=== PATIENT | female | born 1995 | race Two or more races ===

== ENCOUNTER 2024-10-31 13:00 | Emergency (ER) | payer OTHER ==
[~2024-10-31] VITALS: Ht 154.9 cm; Wt 52.2 kg
[2024-10-31] MEDS ORDERED: PEPCID AC20 MG (13:18)
[2024-10-31] MEDS ORDERED: ONDANSETRON HCL 2 MG/ML VIAL IV STA (13:33)
[2024-10-31] MEDS ORDERED: 0.9 % SODIUM CHLORIDE 1,000 ML IV STA (13:33)
[2024-10-31] MEDS ORDERED: ONDANSETRON HCL 2 MG/ML VIAL ONE (13:55)
[2024-10-31 14:22] LABS: HEMATOCRIT 40.7 % (36.0-45.00); HEMOGLOBIN 13.7 g/dL (12.0-15.00); MEAN CORPUSCULAR HGB CONC 33.7 g/dl (32.0-36.0); PLATELET COUNT 267 K/uL (150-450); RED BLOOD COUNT 4.58 M/uL (4.00-6.00); RED CELL DISTRIBUTION WIDTH 13.4 % (11.5-14.5)
[2024-10-31 15:03] LABS: CALCIUM 9.5 mg/dL (8.5-10.1); CREATININE SERUM 0.66 mg/dL (0.55-1.02); GFR 104.46; POTASSIUM 4.32 mEq/L (3.5-5.1)
[2024-10-31] MEDS ORDERED: DICYCLOMINE HCL 20 MG TABLET PO ONE (16:15)
[2024-10-31] MEDS ORDERED: ZOFRAN8 MG PO (16:19)
[2024-10-31] MEDS ORDERED: PEPCID AC20 MG PO (16:19)
[2024-10-31] MEDS ORDERED: DICYCLOMINE HCL 10 MG CAPSULE PO ONE (16:20)
== END 2024-10-31 16:41 | disposition home or self-care (01) ==
LOC: ER 13:03
PROVIDERS: Emergency Medicine
DX: R11.10 Vomiting, unspecified (principal); Z88.8 Allergy status to other drugs, medicaments and biological substances